=== PATIENT | female | born 1980 | race Caucasian/White ===

== ENCOUNTER 2018-07-30 21:19 | Emergency (ER) | payer OTHER ==
[~2018-07-30] VITALS: Ht 157.5 cm; Wt 63.5 kg
[2018-07-30 21:23] VITALS: BP 135/98
--- NOTE | 2018-07-30 21:26 | NUR ---
PT RECEIVED TO LOBBY VIA W/C FROM AMBULANCE BAY IN STABLE CONDITION.
--- NOTE | 2018-07-30 21:47 | NUR ---
Patient returned to ED lobby after completion of XRAY.
--- NOTE | 2018-07-30 21:59 | NUR ---
PT WAS TAKEN TO BED 04 BY WHEELCHAIR.
--- NOTE | 2018-07-30 21:59 | NUR ---
BIBA C/O LEFT HIP PAIN S/P WALKING ALL DAY. PT DENIES TRAUMA. PMH BURSITIS. PT DENIES N/V/D; SKIN IS PINK/WARM/DRY; AAOX4 WITH EVEN AND STEADY GAIT; LUNGS CLEAR BL; HR EVEN AND REGULAR; PATIENT STATES PAIN OF 9/10 AT THIS TIME; PATIENT POSITIONED FOR COMFORT; HOB ELEVATED; BEDRAILS UP X2; BED DOWN. ER MD MADE AWARE OF PT STATUS.
--- NOTE | 2018-07-30 23:55 | NUR ---
DR ROJAS AT BEDSIDE AT BEDSIDE TO EVALUATE PT
[2018-07-31] MEDS ORDERED: KETOROLAC 60 MG/2 ML VIAL IM ONE (00:05)
[2018-07-31] MEDS ORDERED: MORPHINE SULFATE 4 MG/ML SYR IM ONE (00:05)
[2018-07-31 00:28] VITALS: BP 129/88
--- NOTE | 2018-07-31 00:28 | NUR ---
Patient discharged with v/s stable. Written and verbal after care instructions given and explained. Patient alert, oriented and verbalized understanding of instructions. Ambulatory with steady gait. All questions addressed prior to discharge. ID band removed. Patient advised to follow up with PMD. Rx of NORCO, IBU, given. Patient educated on indication of medication including possible reaction and side effects. Opportunity to ask questions provided and answered.
== END 2018-07-31 00:28 | disposition home or self-care (01) ==
LOC: MED 21:19
DX: M25.552 Pain in left hip (principal); F32.9 Major depressive disorder, single episode, unspecified; F41.9 Anxiety disorder, unspecified; F17.200 Nicotine dependence, unspecified, uncomplicated
CPT/HCPCS: 73502; 96372; 99284; J1885; J2270